=== PATIENT | female | born 1985 | race American Indian/Alaskan Native ===

== ENCOUNTER 2018-06-01 16:28 | Emergency (ER) | payer MEDICAID ==
[2018-06-01 17:10] VITALS: BP 138/82; PULSE 89; RESP 16; TEMP 98.3; O2SAT 97
--- NOTE | 2018-06-01 17:51 | ED PDOC ---
Arrival/HPI - General Chief Complaint: Abnormal Skin Integrity Time Seen by Provider: 06/01/18 16:37 Historian: Patient - History of Present Illness Narrative History of Present Illness (Text): 06/01/18 17:53 32yr old female with a 1year history of left 2nd toenail fungus presents today requesting treatment. pt denies pain. pt states she has hx of fungus on this same toe and took medication prescribed by her PMD over a year ago and states her toe nail fungus was gone, but returned. pt denies trauma or injury. pt denies fever/chills. pt states fungus is only on left 2nd toe. no other complaints. Past Medical History - Provider Review Nursing Documentation Reviewed: Yes - Travel History Have you recently traveled outside [place] w/in the past 3 mons?: No - Psychiatric Hx Psychophysiologic Disorder: No Hx Substance Use: No Family/Social History - Physician Review Nursing Documentation Reviewed: Yes Family/Social History: Unknown Family HX Smoking Status: Never Smoked Hx Alcohol Use: No Hx Substance Use: No Allergies/Home Meds Allergies/Adverse Reactions: Allergies No Known Allergies Allergy (Verified 06/01/18 17:05) Review of Systems - Review of Systems Constitutional: absent: Fatigue, Fevers Respiratory: absent: SOB, Cough Cardiovascular: absent: Chest Pain, Palpitations Gastrointestinal: absent: Abdominal Pain, Nausea, Vomiting Musculoskeletal: absent: Arthralgias, Back Pain, Neck Pain Skin: Other (toe nail fungus) Neurological: absent: Headache, Dizziness Psychiatric: absent: Anxiety, Depression Physical Exam Vital Signs Reviewed: Yes Vital Signs Temp Pulse Resp BP Pulse Ox 06/01/18 17:06 98.3 F 89 16 138/82 97 Temperature: Afebrile Blood Pressure: Normal Pulse: Regular Respiratory Rate: Normal Appearance: Positive for: Well-Appearing, Non-Toxic, Comfortable Pain Distress: None Mental Status: Positive for: Alert and Oriented X 3 - Systems Exam Head: Present: Atraumatic Respiratory/Chest: Present: Clear to Auscultation Cardiovascular: Present: Regular Rate and Rhythm Lower Extremity: Present: Normal ROM, Other (+ thickened discolored left 2nd . non tender. no erythema; ). No: Tenderness, Swelling Skin: Present: Warm, Dry Medical Decision Making ED Course and Treatment: 06/01/18 18:02 32yr old female with 1 yr hx of toe nail fungus to left 2nd toe. advised patient that she will need PO antifungal medications which she will have to be closely followed for liver function. advised the patient that i will given antifungal cream which will be just temporary until she starts antifungal medications. i advised her that the cream is NOT the treatment of choice. i have discussed home remedies with the patient and stressed the importance of f/ u with software quality test engineer and to consider laser removal. Patient verbalizes understanding of discharge instructions and need for immediate followup. all aspects of this case were discussed the attending of record. Impression: Onychomycosis YOU NEED TO FOLLOW UP WITH A DRAY DRIVER (FOOT DOCTOR) YOU WILL NEED MONITORING OF LIVER FUNCTION AND MEDICATIONS BY MOUTH TO TREAT YOUR TOE NAIL FUNGUS FOLLOW UP WITH YOUR PRIMARY CARE PHYSICIAN WITHIN THE NEXT 2 DAYS. Disposition/Present on Arrival - Present on Arrival Any Indicators Present on Arrival: No History of DVT/PE: No History of Uncontrolled Diabetes: No Urinary Catheter: No History of Decub. Ulcer: No History Surgical Site Infection Following: None - Disposition Have Diagnosis and Disposition been Completed?: Yes Diagnosis: Onychomycosis Disposition: HOME/ ROUTINE Disposition Time: 17:47 Patient Plan: Discharge Condition: GOOD Discharge Instructions (ExitCare): Fungal Nail Infections Additional Instructions: YOU NEED TO FOLLOW UP WITH A DRAY DRIVER (FOOT DOCTOR) YOU WILL NEED MONITORING OF LIVER FUNCTION AND MEDICATIONS BY MOUTH TO TREAT YOUR TOE NAIL FUNGUS FOLLOW UP WITH YOUR PRIMARY CARE PHYSICIAN WITHIN THE NEXT 2 DAYS. Prescriptions: Clotrimazole 1% Cream [Lotrimin 1%] 1 appl TP BID #1 tube Referrals: Jose A Enrique DPM [Staff Provider] - Follow up with primary Cristian Pastrana MD [Staff Provider] - Follow up with primary Grace Pate MD [Medical Doctor] - Follow up with primary [facility] [Outside] - Follow up with primary Forms: [employer] (Serbian), WORK NOTE
== END 2018-06-01 17:58 | disposition home or self-care (01) ==
LOC: ED 16:28
DX: B35.1 Tinea unguium (principal)